=== PATIENT | female | born 1980 | race Two or more races ===

== ENCOUNTER 2017-08-16 22:02 | Emergency (ER) | payer SELFPAY ==
--- NOTE | 2017-08-16 22:12 | PDOC ---
History of Present Illness - General History Source: Patient Exam Limitations: No Limitations - History of Present Illness Initial Comments: 08/16/17 22:57 The patient is a 36 year old female with history of uterine fibroids approximately 6 days s/p myomectomy, asthma, who presents to the ED complaining of diffuse, moderate abdominal pain with radiation to the chest that began today. She also reports associated nausea, multiple episodes of nonbilious vomiting, and diffuse mild headache. She has been taking Oxycodone for her pain. She reports two bowel movements today, no constipation or diarrhea. She denies any fever or chills. She denies abnormal vaginal bleeding or discharge. She denies shortness of breath, palpitations, or lightheadedness. She denies blurred vision, numbness or tingling. She denies alcohol abuse, cigarette smoking, or illicit drug use. PROPELLER ENGINEER: Dr. Jonathan Pham at [facility] <Keisha Schmid - Last Filed: 08/17/17 04:54> <Reese Martinez - Last Filed: 08/17/17 05:25> - General Chief Complaint: Chest Pain Stated Complaint: CHEST PAIN/ABD PAIN/VOMITING/HEADACHE Time Seen by Provider: 08/16/17 22:11 Past History - Past Medical History Asthma: Yes Dementia: No Diabetes: No HTN: No Hypercholesterolemia: No Other medical history: uterine fibroids - Surgical History Other Surgical History: 08/17/17 02:05 myomectomy <Keisha Schmid - Last Filed: 08/17/17 04:54> <Reese Martinez - Last Filed: 08/17/17 05:25> - Past Medical History Allergies/Adverse Reactions: Allergies Allergy/AdvReac Type Severity Reaction Status Date / Time No Known Allergies Allergy Verified 08/16/17 23:13 Home Medications: Ambulatory Orders Albuterol 2.5/Ipratropium 0.5 08/16/17 Albuterol Sulfate Inhaler - [Ventolin HFA Inhaler -] 1 puff IH PRN 08/16/17 Albuterol Sulfate [Ventolin -] 2 mg 08/16/17 Iron 18 mg PO DAILY 08/16/17 Review of Systems - Review of Systems Able to Perform ROS?: Yes Comments:: 08/16/17 23:02 A complete review of 10 out of 10 review of systems is taken and is negative apart from what is previously mentioned below and in the HPI. <Keisha Schmid - Last Filed: 08/17/17 04:54> *Physical Exam - Physical Exam Comments: 08/16/17 23:02 Vitals: Triage Vital signs reviewed General Appearance: +uncomfortable appearance. Well nourished well developed Head: Atraumatic Eyes: Pupils equal reactive round, extraocular movement intact Ears: TM's normal bilaterally Nose: Nares patent bilaterally; no nasal congestion Throat: Posterior oropharynx without erythema, mucous membranes moist Neck: Supple; No Nucal rigidity Cardiac: Regular rate and rhythym, no murmurs, no rubs, no gallops Lungs: Clear to auscultation bilateral, good air movement bilaterally Abdomen: +LLQ tenderness to palpation. Soft, non distended, normal bowel sounds. Extremities: Full range of motion to all extremities, no cyanosis, clubbing, or edema Skin: Warm and dry, no rashes or lesions, no rash, no petechiae Neuro: AOX3; Cranial Nerves 2-12 grossly intact, Strength intact to all extremities, Sensation intact to all extremities, gait normal Psych: Normal mood, normal affect <Keisha Schmid - Last Filed: 08/17/17 04:54> ED Treatment Course - LABORATORY CBC & Chemistry Diagram: 08/16/17 22:45 08/16/17 22:58 - RADIOLOGY Radiograph Interpretation: 08/17/17 02:30 CT of abdomen and pelvis, reviewed and interpreted by Imaging Motor Adjuster. Findings: Lung bases, liver, gallbladder, pancreas, spleen, adrenals and kidneys within normal limits. Multiple irregular defects in the patient's enlarged uterus, likely myomectomy sites. Small hematoma suggested at the uterine fundus resection site and also anterior to the uterine body resection site Dilated fluid-filled small bowel up to 3.3 cm caliber, transition point right anterior pelvis axial images 97 of 155, and coronal images 21 and 69, about 1.5 cm superior to the uterine fundus. No obvious mass. Could adhesion, however internal hernia or other cause of obstruction should also be considered. Distal small bowel as this area appears completely decompressed. Colon is decompressed distally normal caliber proximally. Abdominal aorta normal caliber. Small volume slightly complex density free fluid in the pelvis, perhaps dilute blood products. Free air in anterior pelvis and right rectus abdominis muscle consistent with recent post surgical change. Impression: High grade distal small bowel obstruction, transition in the right pelvis. Recent post-myomectomy changes to an enlarged uterus. <Keisha Schmid - Last Filed: 08/17/17 04:54> - LABORATORY CBC & Chemistry Diagram: 08/16/17 22:45 08/16/17 22:58 <Reese Martinez - Last Filed: 08/17/17 05:25> Medical Decision Making - Medical Decision Making Patient presents to the emergency department 6 days status post myomectomy with 1 day history of severe abdominal pain and greater than 15 episodes of vomiting We'll treat with IV fluids antiemetics CT abdomen and pelvis with IV contrast given recent surgery and reevaluation. 08/17/17 03:37 CT with evidence of high-grade small bowel obstruction with transition point at the uterine fundus Case discussed with patient's FIBERGLASS PIPE COVERING SUPERVISOR who performed a myomectomy 6 days ago at the [facility] Dr. Jonathan Pham recommends transfer back to [place]. I discussed with patient her preference is to be transferred back to the [place] She is hemodynamically stable her electrolytes are within normal limits. An NG tube was placed here in the emergency department with good retrieval of gastric contents I discussed the case with the emergency department at the [facility] . We will perform a ER to ER transfer at the request of the patient' s FIBERGLASS PIPE COVERING SUPERVISOR and at patient's request secondary to this being the hospital where her surgery was performed. Patient consented with for transfer. All risks and benefits of transfer discussed with patient all questions answered by patient <Reese Martinez - Last Filed: 08/17/17 05:25> *DC/Admit/Observation/Transfer - Attestations Scribe Attestion: 08/16/17 23:03 Documentation prepared by Keisha Schmid, acting as medical case worker for Reese Martinez MD. <Keisha Schmid - Last Filed: 08/17/17 04:54> - Transfer to Acute Care Facility Receiving Facility: Other hosp. not listed Accepting Physician:: Dr. Mcgovern <Reese Martinez - Last Filed: 08/17/17 05:25> Diagnosis at time of Disposition: Small bowel obstruction - Discharge Dispostion Disposition: TRANSFER ACUTE CARE/OTHER HOSP
[2017-08-16] MEDS ORDERED: ONDANSETRON 4 MG/2 ML VIAL IVPUSH ONE (22:28)
[2017-08-16] MEDS ORDERED: morphine CARPU-JECT 8 MG/1 ML DISP.SYRIN IVPUSH ONE (22:28)
[2017-08-16] MEDS ORDERED: FAMOTIDINE 20 MG/50 ML IVPB 50 ML IVPB ONE (22:28)
[2017-08-16] MEDS ORDERED: morphine CARPU-JECT 4 MG/1 ML DISP.SYRIN IVPUSH ONE (22:28)
[2017-08-16] MEDS ORDERED: SODIUM CHLORIDE 0.9% 1000 ML INFUS.BAG IV ONE (22:28)
[2017-08-16] MEDS ORDERED: morphine CARPU-JECT 8 MG/1 ML DISP.SYRIN ONE (22:34)
[2017-08-16 23:12] LABS: BASOPHIL 0.9 % (0-2.0); EOSINOPHIL 0.7 % (0-4.5); MCH 30.3 pg (25.7-33.7); MCHC 33.9 g/dl (32.0-36.0); MEAN CELL VOLUME 89.3 fl (80-96); MEAN PLT VOLUME 8.1 fl (7.5-11.1); NEUTROPHILS 83.9 % (42.8-82.8); PLATELET COUNT 386 K/MM3 (134-434); RDW 14.4 % (11.6-15.6); WHITE BLOOD COUNT 12.2 K/mm3 (4.0-10.0)
[2017-08-16 23:23] VITALS: TEMP 97.8; BMI 27.4
[2017-08-16 23:30] LABS: ALBUMIN 4.2 g/dl (3.4-5.0); ANION GAP 12 (8-16); CALCIUM 9.5 mg/dL (8.5-10.1); CO2 26 mmol/L (21-32); CREATININE 0.7 mg/dL (0.55-1.02); GLUCOSE,RANDOM 110 mg/dL (74-106); SGPT/ALT 36 U/L (12-78)
[2017-08-16 23:32] LABS: ALK PHOS 69 U/L (45-117); BILIRUBIN,TOTAL 0.2 mg/dL (0.2-1.0); SGOT/AST 21 U/L (15-37); TOT PROT 8.1 g/dl (6.4-8.2)
[2017-08-17] MEDS ORDERED: morphine CARPU-JECT 4 MG/1 ML DISP.SYRIN IVPUSH ONE ×2 (00:19→04:06)
[2017-08-17] MEDS ORDERED: morphine CARPU-JECT 8 MG/1 ML DISP.SYRIN ONE ×2 (00:26→04:11)
[2017-08-17 00:36] LABS: URINE APPEARANCE CLOUDY; URINE BILIRUBIN NEGATIVE (NEGATIVE); URINE BLOOD NEGATIVE (NEGATIVE); URINE COLOR YELLOW; URINE GLUCOSE (UA) NEGATIVE (NEGATIVE); URINE KETONE TRACE (NEGATIVE); URINE NITRITE NEGATIVE (NEGATIVE); URINE UROBILINOGEN NEGATIVE mg/dL (0.2-1.0)
[2017-08-17 00:39] LABS: URINE PROTEIN 1+ (NEGATIVE)
[2017-08-17 00:43] LABS: URINE MUCUS RARE; URINE RBC 1 /hpf (0-3); URINE WBC 11 /hpf (3-5)
[2017-08-17] MEDS ORDERED: LIDOCAINE VISCOUS 2% ORAL/TOP 20 ML UNIT-DOSE CUP MM ONE (02:38)
[2017-08-17] MEDS ORDERED: MIDAZOLAM HCL 2 MG/2 ML SINGLE DOSE VIAL IVPUSH ONE (02:38)
[2017-08-17] MEDS ORDERED: TETRACAINE/BENZOCAINE/BUTAMBEN 20 GM SPR TP ONE (02:38)
[2017-08-17] MEDS ORDERED: SODIUM CHLORIDE 1,000 ML IV SCH (02:45)
[2017-08-17] MEDS ORDERED: MIDAZOLAM HCL 2 MG/2 ML SINGLE DOSE VIAL ONE (02:57)
[2017-08-17] MEDS ORDERED: LIDOCAINE VISCOUS 2% ORAL/TOP 20 ML UNIT-DOSE CUP ONE (02:59)
[2017-08-17 04:23] VITALS: BP 133/83; PULSE 95
[2017-08-17 09:31] LABS: URINE LEUK ESTERASE Negative (NEGATIVE)
== END 2017-08-17 04:52 | disposition short-term general hospital (02) ==
LOC: JER 22:02
PROC: 3E0337Z Introduction of Electrolytic and Water Balance Substance into Peripheral Vein, Percutaneous Approach (ICD-10-PCS; principal; 2017-08-16)
PROC: 3E033GC Introduction of Other Therapeutic Substance into Peripheral Vein, Percutaneous Approach (ICD-10-PCS; 2017-08-16)
PROC: 3E033GC Introduction of Other Therapeutic Substance into Peripheral Vein, Percutaneous Approach (ICD-10-PCS; 2017-08-16)
PROC: 3E033NZ Introduction of Analgesics, Hypnotics, Sedatives into Peripheral Vein, Percutaneous Approach (ICD-10-PCS; 2017-08-16)
DX: K91.30 Postprocedural intestinal obstruction, unspecified as to partial versus complete (principal); Y83.8 Other surgical procedures as the cause of abnormal reaction of the patient, or of later complication, without mention of misadventure at the time of the procedure; Y76.8 Miscellaneous obstetric and gynecological devices associated with adverse incidents, not elsewhere classified
CPT/HCPCS: 36415; 71010-TC; 74177-TC; 80053; 81003; 81015; 83690; 84703; 85025; 87086; 99285-25